=== PATIENT | male | born 1940 | race Caucasian/White ===

== ENCOUNTER 2018-08-29 11:10 | Inpatient (IN) | payer MEDICARE, SELFPAY ==
[2018-08-29] MEDS ORDERED: Norepinephrine 8 MG/0.9% NS 250 ML ONE ×2 (11:19→16:30)
[2018-08-29 11:32] LABS: Actual Bicarbonate (HCO3a) 21.7 mEq/L (22-28); Analyzer IN Cardio ER; Base Excess (BEa) -12.2 mEq/L (-2.0 to +3.0); Carboxyhemoglobin (COHb) 0.3 gm% (0.0-3.0); Hemoglobin (Hb) 13.2 g/dL (14.0-18.0); O2 Tension (PaO2) 79.4 mmHg (> 70.0); Potassium - ABG Lab 5.33 mmol/L (3.70-5.30)
[2018-08-29 11:33] LABS: CO2 Tension 100.3 mmHg (35.0-45.0); pH, Arterial 6.95 (7.35-7.45)
[2018-08-29 11:34] LABS: ALV-art Gradient 151.725 (0-20); Puncture Site LRA
[2018-08-29] MEDS ORDERED: Sodium Bicarb 50 MEQ/50 ML Abboject 8.4% SYRINGE ONE ×3 (11:58→16:00)
[2018-08-29 12:13] LABS: ALT (SGPT) 22 U/L (8-55); AST (SGOT) 59 U/L (5-34); Albumin 2.5 g/dL (3.4-4.8); Alkaline Phosphatase 122 U/L (40-150); Anion Gap 30 mmol/L (10-20); BUN (Urea Nitrogen) 89 mg/dL (8.4-25.7); Bilirubin, Total 0.6 mg/dL (0.2-1.2); Calc. Creatinine Clearance 0 mL/min (70-130); Calcium 11.1 mg/dL (7.8-10.44); Carbon Dioxide 17 mmol/L (23-31); Chloride 103 mmol/L (98-107); Estimated GFR-MDRD 10; Globulin 4.4 g/dL (2.4-3.5); Glucose 169 mg/dL (83-110); Protein, Total 6.9 g/dL (5.8-8.1); Sodium 145 mmol/L (136-145)
[2018-08-29] MEDS ORDERED: Vancomycin HCl 1.5 GM in Sodium Chloride 0.9% 250 ML 300 ML IVPB ONE (12:15)
[2018-08-29] MEDS ORDERED: Piperacillin/Tazobactam 4.5 GM VIAL ONE (12:19)
[2018-08-29] MEDS ORDERED: Water For Inject, Bacteriostat 30 ML ONE (12:19)
[2018-08-29] MEDS ORDERED: methylPREDNISolone Sod Succ/PF 125 MG/2 ML VIAL ONE (12:19)
[2018-08-29 12:24] LABS: Hemoglobin 12.9 g/dL (14.0-18.0); Mean Corpuscular HGB CONC 32.1 g/dL (32.0-36.0); Mean Corpuscular Hemoglobin 36.5 pg (27.0-31.0); Mean Platelet Volume 8.4 fL (7.4-10.4); Platelet Count 349 thou/uL (130-400); RBC Distribution Width 13.4 % (11.5-14.5); Red Blood Cell (RBC) Count 3.54 mill/uL (4.70-6.10); White Blood Cell (WBC) Count 21.6 thou/uL (4.8-10.8)
[2018-08-29 12:25] LABS: Band 39 % (5-11); Lymphocytes 15 % (21-51); MDiff Complete? YES; Macrocytosis SLIGHT = 6-15 cells (100X) (0-5/hpf); Metamyelocyte 2 % (0-0); Monocytes 3 % (0-10); Neutrophil 41 % (42-75); Nucleated RBC 2 % (0); Polychromasia SLIGHT = 2-3 cells (100X) (0-2/hpf)
[2018-08-29] MEDS ORDERED: Naloxone HCl 2 mg/2 ml Syringe ONE (12:33)
[2018-08-29 12:43] LABS: CKMB 5.4 ng/mL (0-6.6)
--- NOTE | 2018-08-29 12:43 | RAD ---
PORTABLE CHEST: DATE: 08/29/2018. PROVIDED CLINICAL HISTORY: Status post cardiac arrest and hypoxia. FINDINGS: Comparison is made with the study dated 07/06/2014. Cardiac and mediastinal silhouette is within nor mal limits. Vascular calcification involves the aortic arch. Median sternotomy changes are seen. E ndotracheal tube is noted, the tip of which projects in the region of the thoracic inlet. Right-side d subclavian central line is noted, the tip of which projects in the expected location of the SVC. T here is airspace disease throughout the right lung and likely also at the left lung base medially. T he supine nature of this study limits sensitivity for detection and pneumothorax. IMPRESSION: 1. Diffuse right hemithoracic and left basilar airspace disease. Findings could reflect pneumonia, aspiration or edema. Followup is recommended. 2. Lines and tubes as above. POS: CR
[2018-08-29 12:44] LABS: Actual Bicarbonate (HCO3a) 20.4 mEq/L (22-28); Analyzer IN Cardio ER; Base Excess (BEa) -12.1 mEq/L (-2.0 to +3.0); Calcium, Ionized 1.24 mmol/L (1.12-1.30); Carboxyhemoglobin (COHb) 0.1 gm% (0.0-3.0); O2 Tension (PaO2) 114.8 mmHg (> 70.0); Potassium - ABG Lab 4.39 mmol/L (3.70-5.30)
[2018-08-29] MEDS ORDERED: Vasopressin 40 UNIT, Admixture Fee 1 EACH in Sodium Chloride 0.9% 100 ML IV SCH (12:45)
[2018-08-29 12:47] LABS: CO2 Tension 84.4 mmHg (35.0-45.0); Puncture Site LBA
[2018-08-29 12:57] LABS: Lactic Acid 13.9 mmol/L (0.5-2.2)
[2018-08-29] MEDS ORDERED: EPINEPHrine 1 MG/10 ML Abboject SYRINGE ONE ×2 (14:01→16:00)
[2018-08-29] MEDS ORDERED: Acetaminophen 650 MG Suppository PR PRN (14:17)
--- NOTE | 2018-08-29 14:18 | CT ---
CT BRAIN: DATE: 08/29/2018. PROVIDED CLINICAL HISTORY: Post cardiac arrest. FINDINGS: Comparison 09/17/2013. The ventricular system appears normal I size and morphology. There is no monika dence for intracranial hemorrhage or mass effect. Chronic microvascular white matter ischemic change s are seen. Fletcher-white differentiation appears preserved. The extracranial soft tissues and osseous structures appear unremarkable. IMPRESSION: No evidence for intracranial hemorrhage or mass effect. POS: [facility]
[2018-08-29 14:33] VITALS: BMI 30.8
[2018-08-29 14:43] LABS: Actual Bicarbonate (HCO3a) 20.1 mEq/L (22-28); Base Excess (BEa) -9.7 mEq/L (-2.0 to +3.0); Calcium, Ionized 1.09 mmol/L (1.12-1.30); Carboxyhemoglobin (COHb) 0.9 gm% (0.0-3.0); Hemoglobin (Hb) 12.6 g/dL (14.0-18.0); Potassium - ABG Lab 4.35 mmol/L (3.70-5.30)
[2018-08-29 14:56] LABS: CO2 Tension 62.6 mmHg (35.0-45.0); pH, Arterial 7.12 (7.35-7.45)
[2018-08-29 14:57] LABS: O2 Tension (PaO2) 55.9 mmHg (> 70.0); Puncture Site LFA
[2018-08-29] MEDS ORDERED: Vancomycin HCl 1.5 GM in Sodium Chloride 0.9% 250 ML 300 ML IVPB SCH (15:00)
[2018-08-29] MEDS ORDERED: Piperacillin/Tazobactam 2.25 GM in Sodium Chloride 0.9% 100 ML IVPB SCH (15:00)
[2018-08-29] MEDS ORDERED: EPINEPHrine 4 MG, Admixture Fee 1 EACH in Dextrose 5% in Water 250 ML IVPB SCH (15:15)
[2018-08-29 15:40] LABS: Troponin I 0.381 ng/mL (< 0.028)
[2018-08-29] MEDS ORDERED: Calcium Chloride 1 GM/10 ML Abboject SYRINGE ONE (16:00)
[2018-08-29 18:23] LABS: CKMB 13.7 ng/mL (0-6.6)
[2018-08-29] MEDS: Albuterol Sulfate 1.25 MG/3 ML NEB NEB SCH ×2 (18:39→22:09)
[2018-08-29 19:03] LABS: Albumin 2.3 g/dL (3.4-4.8); Anion Gap 30 mmol/L (10-20); BUN (Urea Nitrogen) 87 mg/dL (8.4-25.7); BUN/Creatinine Ratio 16.23; Calc. Creatinine Clearance 16 mL/min (70-130); Calcium 8.8 mg/dL (7.8-10.44); Carbon Dioxide 10 mmol/L (23-31); Chloride 109 mmol/L (98-107); Estimated GFR-MDRD 10; Glucose 254 mg/dL (83-110); Potassium 4.9 mmol/L (3.5-5.1); Sodium 144 mmol/L (136-145)
[2018-08-29 19:32] LABS: Actual Bicarbonate (HCO3a) 23.3 mEq/L (22-28); Base Excess (BEa) -7.5 mEq/L (-2.0 to +3.0); Calcium, Ionized 1.09 mmol/L (1.12-1.30); Carboxyhemoglobin (COHb) 0.9 gm% (0.0-3.0); Hemoglobin (Hb) 13.9 g/dL (14.0-18.0); O2 Tension (PaO2) 70.9 mmHg (> 70.0); Potassium - ABG Lab 3.86 mmol/L (3.70-5.30)
[2018-08-29 19:35] LABS: ALV-art Gradient 550.225 (0-20); CO2 Tension 73.5 mmHg (35.0-45.0); Puncture Site RRAD; pH, Arterial 7.12 (7.35-7.45)
[2018-08-29] MEDS ORDERED: Sodium Bicarb 50 MEQ/50 ML Abboject 8.4% SYRINGE IVP SCH (20:00)
[2018-08-29] MEDS: Sodium Bicarbonate 150 MEQ in Dextrose 5% in Water 1,000 ML IV SCH (20:12)
[2018-08-29 21:11] VITALS: TEMP 99
--- NOTE | 2018-08-29 21:29 | HP ---
HISTORY OF PRESENT ILLNESS: The patient is a 77-year-old male, who was found to be with altered mental status when the EMS was called to his place where he was, thus history is very limited. EMS tried to intubate him and he coded, they started resuscitation when he was transported by the helicopter to the emergency room at [facility] and he coded three times total. The last time he coded was in the emergency room at [facility] in [place]. He got intubated, and he is getting admitted for sepsis and respiratory failure to critical care unit. As I stated above, the history is very limited on this case. We know that he has some history of leukemia. PAST MEDICAL HISTORY: Also positive for COPD, chronic low back pain, coronary artery disease, status post bypass. PAST SURGICAL HISTORY: 1. Coronary artery bypass grafting x4 vessels. 2. Appendectomy. 3. Left arm surgery. ALLERGIES: NONE. SOCIAL HISTORY: Unobtainable secondary to the patient's mental status at this point. FAMILY HISTORY: Unobtainable. MEDICATIONS: We know that he is taking; 1. Hydrocodone. 2. Atorvastatin. 3. Lisinopril. 4. Hydroxyurea. REVIEW OF SYSTEMS: Unobtainable. PHYSICAL EXAMINATION: GENERAL: He is intubated. HEENT: His pupils are quite small, approximately 2 mm and they are not very responsive to light. Sclerae are nonicteric. He is orally intubated. LUNGS: Bilateral rales at both bases, mild. No wheezing. HEART: S1 and S2. Tachycardic. No S3. No S4. ABDOMEN: Soft, nondistended. Bowel sounds are present. EXTREMITIES: No clubbing, cyanosis, or edema. Peripheral pulses significantly diminished on both dorsalis pedis and tibialis posterior arteries similar bilaterally. NEUROLOGICAL: He is unresponsive. Full neuro examination postponed. SKIN: No rash. LABORATORY DATA: White count of 21.6, hemoglobin 12.9, hematocrit 40.2, platelet count is 349,000, 41 neutrophils, 39 bands. ABGs showed pH of 6.95, pCO2 of 100.3, pO2 of 79.4, bicarb 21.7, base excess -12.2. A-a gradient 151, calcium . Sodium of 145, potassium 5, chloride 103, CO2 of 17, anion gap 30, BUN 89, creatinine 5.72, glucose 169, calcium 11.1, and AST 59. Troponin 0.341. CK-MB pending. Albumin 2.5, globulin 4.4. EKG showed sinus tachycardia at 135 beats per minute, right bundle-branch block, nonspecific T-wave changes. Chest x-ray personally reviewed by me showed increased opacification of the right lung suggestive of some inflammatory process most likely pneumonia. IMPRESSION: 1. Severe sepsis with hypotension. The patient is on Levophed and epi drips. He is getting IV fluids. He is started on Zosyn and vancomycin. 2. Respiratory failure, hypercapnic and hypoxic. I presume that this is acute on chronic with his chronic obstructive pulmonary disease and hydrocodone use, most likely pCO2. 3. Metabolic acidosis, again probably acute on chronic secondary to renal failure. 4. Acute renal failure. 5. Severe chronic obstructive pulmonary disease. 6. Right lung infiltrate suggestive of pneumonia. 7. Coronary artery disease and elevated first troponin at 0.3. PLAN: Admission to critical care unit. Status, critical. IV fluids; he had 1 L of fluids plus what he got prior to the hospital emergency room evaluation during transport. We will give him additional 2 L to get his blood pressure up. So far, he is not responding well to our treatment. We will keep him on vancomycin and Zosyn IV piggyback. He had 2 antibiotics, each of them started in the emergency room. We will have peoplesoft hrms developer, Dr. Louis and Critical Care/Pulmonary, Dr. Russ involved. Dr. Russ is informed about the patient's status and condition. We will use steroids since he has severe COPD and albuterol every 4 hours. We will do SCDs for DVT prophylaxis so far. We will have echocardiogram and Cardiology consultation with Dr. Helton, who is console attendant today. We will have him on IV Protonix for PUD prophylaxis. Blood and urine cultures were done. Job ID: [id number]
[2018-08-29] MEDS: Norepinephrine 8 MG/250 ML BAG IVPB PRN (21:31)
[2018-08-29] MEDS: Piperacillin/Tazobactam 2.25 GM in Sodium Chloride 0.9% 100 ML IVPB SCH (21:32)
--- NOTE | 2018-08-29 23:58 | CON ---
DATE OF CONSULTATION: 08/29/2018 CARDIOLOGY CONSULT NOTE INDICATION FOR CONSULTATION: A 77-year-old patient who was found down and also had [id number] cardiac arrest appears to be septic. He required two or three times resuscitation prior to being admitted to the Intensive Care Unit. At this time, he is on the ventilator. He has some significant cyanosis of the left upper extremity involving the hand and wrist area. Otherwise, he remains relatively stable from a cardiac standpoint at this time. He is on Levophed. Blood pressure is 120/62. He is on the ventilator. Heart rate 116, and O2 saturation 91%. PAST MEDICAL HISTORY: Significant for coronary artery disease also due to hypertension as well as chronic back pain. He has had a history of COPD. He has had a history of leukemia and bone cancer, uncertain exactly when the last time this was evaluated. He has had an appendectomy. He has had bypass surgery x4 back in 2000, I believe. He has also had orthopedic surgery in the left arm. SOCIAL HISTORY: According to the records, he has no previous history of smoking or alcohol use. He is , but lives with his ex-. Otherwise, we do not know any other past social history. ALLERGIES: NONE. MEDICATIONS: His medications prior to admission include; 1. Lisinopril. 2. Pantoprazole. 3. Atorvastatin. 4. Baby aspirin. 5. Hydroxyurea. 6. Hydrocodone. 7. Also p.r.n. Valium. REVIEW OF SYSTEMS: Not obtainable. The patient is on the ventilator and sedated. PHYSICAL EXAMINATION: GENERAL: Reveals an ill-appearing gentleman on the ventilator. HEENT: Unremarkable. He has an ET tube in place. CHEST: Has diffuse rales throughout. CARDIOVASCULAR: Heart sounds are distant, but appears to be tachycardic and I did not hear any murmurs, bruits, or rubs. ABDOMINAL: Shows morbid obesity. I cannot evaluate any further. EXTREMITIES: Showed minimal lower extremity edema. Pedal pulses were not palpable. The radial pulses also were not palpable, but were present by Doppler, but the left hand is extremely cyanotic as well as the fingers. No lower extremity edema. NEUROLOGIC: Obviously, the patient is sedated. LABORATORY DATA: Shows a WBC of 21.6 with 39% bands, hemoglobin 12.9. His chemistry shows sodium of 145, BUN of 89, creatinine of 5.72. Lactic acid 13.9. Troponin was 0.34, then 0.38 and then 0.40. His previous creatinine back in June 2014 was normal. We do not have any laboratory data between 2013 and 2018. IMPRESSION: 1. Sepsis of uncertain etiology due to elevated white blood cell count as well as significant increase in the percentage of bands. The patient is septic and most likely has metabolic acidosis associated with this. 2. History of coronary artery disease, appears to be relatively stable despite his sepsis at this time. 3. Poor perfusion involving the left upper extremity. 4. History of chronic obstructive pulmonary disease. It will be dealt with by the primary care service. 5. History of hypertension, this is obviously he is on pressors at this time to maintain the blood pressure due to the sepsis. 6. History of leukemia as well as bone cancer, this will be dealt with perhaps if necessary by the Oncology Service. From a cardiac standpoint, there is very little I have to offer at this time except for control of the blood pressure and heart rate. His heart rate shows a sinus tachycardia at 118 beats per minute with occasional PVCs. His overall prognosis is poor due to severe sepsis in this gentleman with multiple other medical problems. We will obtain an echocardiogram for evaluation of the left ventricular systolic function and further recommendations will depend on the ejection fraction. Job ID: [id number]
--- NOTE | 2018-08-30 01:34 | CON ---
DATE OF CONSULTATION: 08/29/2018 SERVICE: Pulmonary Medicine. REASON FOR CONSULT: Septic shock. HISTORY OF PRESENT ILLNESS: The patient is a 77-year-old white male with past medical history significant for COPD and coronary artery disease. Apparently, he was in his usual state of health last night when he went to sleep. This morning, his found him. He had one leg pant on his jeans. He was slumped over sideways in bed with a mouthful of frothy sputum. He was subsequently brought to the emergency department. He was intubated. He lost pulses. Ultimately, he required chest compressions. He had return of circulation, but then required chest compressions a second time. Overall, he had over 10 minutes of chest compressions. When he arrived in the ICU, his pupils were very poorly reactive. He was completely unresponsive. He is on mechanical ventilation. He is on 3 separate pressors in order to maintain blood pressures. He cannot provide any additional elements of the history. PAST MEDICAL HISTORY: 1. COPD. 2. Coronary artery disease. 3. Chronic low back pain. 4. Gastroesophageal reflux disease. 5. Leukemia (family says that he has a blood cancer). PAST SURGICAL HISTORY: 1. Coronary artery bypass graft. 2. Left arm surgery. 3. Appendectomy. SOCIAL HISTORY: Unknown. FAMILY HISTORY: Likely noncontributory. ALLERGIES: NO KNOWN DRUG ALLERGIES. MEDICATIONS: List of his inpatient medications was reviewed. Multiple updates were made at this time. REVIEW OF SYSTEMS: Cannot be obtained as the patient is currently encephalopathic. PHYSICAL EXAMINATION: VITAL SIGNS: Afebrile, pulse 118, blood pressure 135/61, respirations 24, and saturation 92% on 2 L on 90% FiO2 and a PEEP of 7. HEENT: Normocephalic and atraumatic. Sclerae white. Conjunctivae pink. Oral mucosa is dry. He has dried vomitus in his mustache. NECK: Supple. Trachea is midline. LUNGS: Very reduced air entry. There is rhonchi and crackles present. There is a prolonged expiratory phase with wheezing. HEART: Tachycardic. Regular. ABDOMEN: Soft, nontender, and nondistended. Bowel sounds are positive. MUSCULOSKELETAL: No cyanosis or clubbing. There is no pitting edema. He has skin tenting. GENITOURINARY: Rose catheter in place. NEUROLOGIC: He has very sluggish pupils. He is overbreathing the ventilator, but demonstrates profound weakness. Reflexes seem to be symmetric bilaterally. Cranial nerves and sensation cannot be tested in his current state. LABORATORY DATA: WBC 21.6, hemoglobin 12.9, platelets 349,000. Neutrophils are 41 on top of 15% bands. PH of 7.12, pCO2 of 73, pO2 of 71, corresponding to an oxygen saturation of 90%. Potassium 5.36 and gently downtrending, BUN 87, anion gap 30 and stable, bicarb 10, chloride 109. Basic metabolic profile is otherwise unremarkable. Potassium is downtrending. Phosphorus is 7.0, CK-MB 13.7 and uptrending. Albumin is low at 2.3. Troponin is 0.406 and uptrending. IMAGING: Echocardiogram today demonstrates a 30% to 35% ejection fraction. He has diastolic dysfunction with E to A reversal. The RV is dilated. The left atrium is normal in size and the right atrium is also normal in size. Mild to moderate tricuspid regurgitation is noted. CT of the brain demonstrates no acute intracranial abnormality. His chest x-ray demonstrates fluffy bilateral infiltrates. They seem to be much worse on the right. Endotracheal tube is in good position. Sternotomy wires are noted. There is a right subclavian central venous catheter, which terminates in a good position. ASSESSMENT: 1. Acute hypoxic and hypercapnic respiratory failure. 2. Septic shock. 3. Community-acquired pneumonia. 4. Chronic obstructive pulmonary disease with acute exacerbation. 5. Acute kidney injury, suspected. 6. Pbn-PR-teciqubbc myocardial infarction. 7. Acute on chronic systolic and diastolic heart failure, suspected. 8. Pulseless electrical activity arrest. 9. Multisystem organ dysfunction. DISCUSSION AND PLAN: The patient is doing very poorly at this point. He has a horrendous metabolic or combined metabolic and respiratory acidosis. He is demonstrating breath stacking and so I am having a hard time hyperventilating for him. We are initiating a bicarb drip. He is on 3 separate pressors in order to maintain blood pressure. We are going to continue our empiric antibiotics. There is a very good possibility this patient will be passing away during this hospital stay. We will maximize supportive therapy moving forward. Pulmonary Critical Care will continue to follow on a daily basis. We will trend the lactates through time and hopefully, be able to prove that they are trending downward. He is making very small amounts of urine output, so I am hopeful that he will be able to correct his metabolic derangement. If he does not, we may need to initiate dialysis in 24 to 48 hours or if not sooner. Job ID: [id number]
[2018-08-30] MEDS: Albuterol Sulfate 1.25 MG/3 ML NEB NEB SCH (02:07)
[2018-08-30] MEDS: Norepinephrine 8 MG/250 ML BAG IVPB PRN ×3 (03:17→14:57)
[2018-08-30 03:50] LABS: ALT (SGPT) 24 U/L (8-55); AST (SGOT) 66 U/L (5-34); Alkaline Phosphatase 56 U/L (40-150); Anion Gap 17 mmol/L (10-20); BUN (Urea Nitrogen) 90 mg/dL (8.4-25.7); Calc. Creatinine Clearance 14 mL/min (70-130); Calcium 8.1 mg/dL (7.8-10.44); Carbon Dioxide 30 mmol/L (23-31); Chloride 103 mmol/L (98-107); Estimated GFR-MDRD 9; Globulin 3.8 g/dL (2.4-3.5); Glucose 152 mg/dL (83-110); Potassium 4.3 mmol/L (3.5-5.1); Protein, Total 5.8 g/dL (5.8-8.1); Sodium 146 mmol/L (136-145)
[2018-08-30 04:05] LABS: Lactic Acid 4.9 mmol/L (0.5-2.2)
[2018-08-30 04:06] LABS: Band 45 % (5-11); Dohle Bodies SLIGHT; Hemoglobin 13.8 g/dL (14.0-18.0); Lymphocytes 19 % (21-51); MDiff Complete? YES; Mean Corpuscular Hemoglobin 36.3 pg (27.0-31.0); Mean Platelet Volume 8.9 fL (7.4-10.4); Metamyelocyte 18 % (0-0); Monocytes 8 % (0-10); Myelocyte 3 % (0-0); Neutrophil 7 % (42-75); Nucleated RBC 3 % (0); Platelet Count 189 thou/uL (130-400); RBC Distribution Width 13.6 % (11.5-14.5); Toxic Granulation SLIGHT; White Blood Cell (WBC) Count 9.3 thou/uL (4.8-10.8)
[2018-08-30 05:06] LABS: Actual Bicarbonate (HCO3a) 32.1 mEq/L (22-28); Base Excess (BEa) 2.9 mEq/L (-2.0 to +3.0); Calcium, Ionized 1.03 mmol/L (1.12-1.30); Carboxyhemoglobin (COHb) 0.9 gm% (0.0-3.0); Hemoglobin (Hb) 14.2 g/dL (14.0-18.0); O2 Tension (PaO2) 62.3 mmHg (> 70.0); Potassium - ABG Lab 4.37 mmol/L (3.70-5.30); pH, Arterial 7.27 (7.35-7.45)
[2018-08-30 05:08] LABS: CO2 Tension 72.2 mmHg (35.0-45.0); Puncture Site LBRACH
[2018-08-30] MEDS: Sodium Bicarbonate 150 MEQ in Dextrose 5% in Water 1,000 ML IV SCH (05:26)
[2018-08-30] MEDS: Piperacillin/Tazobactam 2.25 GM in Sodium Chloride 0.9% 100 ML IVPB SCH ×2 (05:27→14:51)
--- NOTE | 2018-08-30 08:20 | PDOC.CTH ---
<Zoya French - Last Filed: 08/30/18 08:15> Cardiology Progress Note - Subjective The pt seen and examined. No overnight events. On mechanical vent support without any vent sedation. No response to pain stimulation. - Objective Vital Signs Pulse Resp BP Pulse Ox 08/30/18 06:56 124 H 101/62 08/30/18 06:53 124 H 29 H 08/30/18 06:00 35 H 08/30/18 04:00 36 H 08/30/18 02:07 130 H 38 H 93 L 08/30/18 02:00 39 H 08/30/18 00:42 124 H 38 H 08/30/18 00:00 39 H 08/29/18 22:10 128 H 08/29/18 22:09 127 H 38 H 92 L 08/29/18 22:00 37 H Weight 208 lb 12.444 oz 08/29/18 08/30/18 08/31/18 06:59 06:59 06:59 Intake Total 3831.6 Output Total 320 Balance 3511.6 - Physical Examination Lungs: other: (coarses and diminished) Heart: RRR Abdomen: soft Extremities: other: (generalized edema; cyanosis) - Telemetry Telemetry Rhythm: ST - Labs Result Diagrams: 08/30/18 03:15 08/30/18 03:15 Troponin/CKMB CK-MB (CK-2) 16.0 ng/mL (0-6.6) H* 08/29/18 20:44 Troponin I 0.589 ng/mL (< 0.028) H* 08/29/18 20:44 - Assessment/Plan 1. s/p Cardiac arrest x 2 - on Mechanical vent support with no vent sedation; no response to pain stimulation; 2. Septic shock with unknown etiology - BP is stable with NS, Epi, Levophed and vasopressin; on ABX IV. 3. Acute on Chronic Combined HF - Echo on 08/29/18 showed EF 30-35% with diastolic dysfunction 4. CAD wtih hx of CABG x4 in 2000 - 5. ARIELLE - worsen today 6. COPD - on Mechanical vent support 7. Cyanosis to Lt hand - 8. hx of eukemia MAR reviewed Review of Systems - Review of Systems Constitutional: reports: see HPI EENTM: reports: see HPI Respiratory: reports: see HPI <Helton,G Nino - Last Filed: 08/30/18 10:30> Cardiology Progress Note - Objective Vital Signs Pulse Resp BP Pulse Ox 08/30/18 10:20 123 H 90/64 08/30/18 06:56 124 H 101/62 08/30/18 06:53 124 H 29 H 08/30/18 06:00 35 H 08/30/18 04:00 36 H 08/30/18 02:07 130 H 38 H 93 L 08/30/18 02:00 39 H 08/30/18 00:42 124 H 38 H 08/30/18 00:00 39 H Weight 208 lb 12.444 oz 08/29/18 08/30/18 08/31/18 06:59 06:59 06:59 Intake Total 3831.6 Output Total 320 Balance 3511.6 - Labs Result Diagrams: 08/30/18 03:15 08/30/18 03:15 Troponin/CKMB CK-MB (CK-2) 16.0 ng/mL (0-6.6) H* 08/29/18 20:44 Troponin I 0.589 ng/mL (< 0.028) H* 08/29/18 20:44 - Assessment/Plan Pt. seen and eval. by me. I agree with the A/P by the PADDER. Blood cultures are positive for staph. EF as above. Unresponsive pt. Extremely poor prognosis. RRR. Chest clear anteriorly.Pt. on ventilator.
[2018-08-30] MEDS ORDERED: Dextrose 5 % And 0.9 % NaCl 1,000 ML IV SCH (09:00)
--- NOTE | 2018-08-30 09:26 | RAD ---
CHEST 1 VIEW: Date: 08/30/18 HISTORY: Ventilated patient. COMPARISON: Radiograph prior day. FINDINGS: Patient intubated with endotracheal tube tip at the level of the clavicles, in good position. Subclav santiago central venous catheter tip is similar. There are bibasilar air space opacities. Small left effus ion. Right upper lobe air space opacity is also present. There is a nodule in the right upper lobe. IMPRESSION: 1. Findings concerning for multifocal pneumonia. 2. Small right and moderate left effusion. 3. Concerning for a nodule in the right upper lobe. Nonemergent follow-up CT of the chest is highly recommended. POS: [facility]
--- NOTE | 2018-08-30 09:41 | PRG ---
DATE OF SERVICE: 08/30/2018 SUBJECTIVE: He is a 77-year-old gentleman, intubated on the vent, on epinephrine, Levophed, and vasopressin drips. He remains hypotensive, on no sedation. OBJECTIVE: VITAL SIGNS: His blood pressure is 103/64, respirations 29, pulse 124, saturating 90%, barely on 100% FiO2 and 7 of PEEP. HEENT: Pupils are 3 mm dilated. He is jaundiced. CHEST: Decreased breath sounds. No wheezing. CARDIAC: Normal S1 and S2. No gallops. ABDOMEN: No masses. LABORATORY DATA: His PO2 is 72, pCO2 is 72, pH is 7.27. BUN and creatinine are 90 and 5.83. His chest x-ray shows bilateral pulmonary infiltrates. His troponin is 0.589. Lactic acid is 4.9. IMPRESSION: 1. Multiorgan failure. 2. Severe respiratory acidosis. 3. Renal failure. 4. Bilateral bronchopneumonia. 5. Congestive heart failure. PLAN: We tried to contact the family to ge additional information and a code status. Presently, he is full code. Cardiology is on board. His echocardiogram shows EF of about 30%, suggesting a cardiac component to his abnormal chest x-ray. Probably, anoxic injury, status post PEA. Antibiotics adjusted for his renal failure, steroids, neb treatment, and supportive care. I am not so sure he is scheduled for dialysis at this stage. This is one half hour critical care time. Job ID: [id number]
--- NOTE | 2018-08-30 09:51 | PDOC.PN ---
- Subjective Encounter Start Date: 08/30/18 Encounter Start Time: 09:50 Subjective: intubated, sedated, cooling blanket - Objective Resuscitation Status - Order Detail: 08/29/18 12:30 Resuscitation Status Routine Resuscitation Status: FULL: Full Resuscitation MAR Reviewed: Yes Vital Signs & Weight: Vital Signs (12 hours) Pulse Resp BP Pulse Ox 08/30/18 06:56 124 H 101/62 08/30/18 06:53 124 H 29 H 08/30/18 06:00 35 H 08/30/18 04:00 36 H 08/30/18 02:07 130 H 38 H 93 L 08/30/18 02:00 39 H 08/30/18 00:42 124 H 38 H 08/30/18 00:00 39 H 08/29/18 22:10 128 H 08/29/18 22:09 127 H 38 H 92 L 08/29/18 22:00 37 H Weight Weight 208 lb 12.444 oz Most Recent Monitor Data Heart Rate from ECG 124 NIBP 103/64 NIBP BP-Mean 77 Respiration from ECG 42 SpO2 90 I&O: 08/29/18 08/30/18 08/31/18 06:59 06:59 06:59 Intake Total 3831.6 Output Total 320 Balance 3511.6 Result Diagrams: 08/30/18 03:15 08/30/18 03:15 Phys Exam - Physical Examination pupils non-rreactive, eyes deviated to right Neck: no JVD rales/rhonchi, bilat R>L Cardiovascular: RRR, no significant murmur tachy Gastrointestinal: soft, non-tender scant bowel sounds Musculoskeletal: no edema Dx/Plan (1) Acute respiratory failure with hypoxia and hypercapnia Code(s): J96.01 - ACUTE RESPIRATORY FAILURE WITH HYPOXIA; J96.02 - ACUTE RESPIRATORY FAILURE WITH HYPERCAPNIA Status: Acute (2) Cardiac arrest Code(s): I46.9 - CARDIAC ARREST, CAUSE UNSPECIFIED Status: Acute Comment: times three (3) PNA (pneumonia) Code(s): J18.9 - PNEUMONIA, UNSPECIFIED ORGANISM Status: Acute Qualifiers: Pneumonia type: due to unspecified organism Laterality: right Lung location: lower lobe of lung Qualified Code(s): J18.1 - Lobar pneumonia, unspecified organism (4) Acute renal failure Status: Acute Qualifiers: Acute renal failure type: with acute tubular necrosis Qualified Code(s): N17.0 - Acute kidney failure with tubular necrosis (5) Cardiomyopathy Code(s): I42.9 - CARDIOMYOPATHY, UNSPECIFIED Status: Acute Qualifiers: Cardiomyopathy type: ischemic Qualified Code(s): I25.5 - Ischemic cardiomyopathy (6) COPD (chronic obstructive pulmonary disease) Status: Acute Qualifiers: COPD type: emphysema Emphysema type: unspecified Qualified Code(s): J43.9 - Emphysema, unspecified (7) CAD (coronary artery disease) Code(s): I25.10 - ATHSCL HEART DISEASE OF [place] CORONARY ARTERY W/O ANG PCTRS Status: Acute Qualifiers: Coronary Disease-Associated Artery/Lesion type: [place] artery [place] vs. transplanted heart: [place] heart Associated angina: angina presence unspecified Qualified Code(s): I25.10 - Atherosclerotic heart disease of [place] coronary artery without angina pectoris - Plan on pressors x 3 -: vent dependent- discuss with intesivit -: oliguric will call renal -: cont iv antibx -: probable anoxic brain injury * .
[2018-08-30] MEDS ORDERED: Heparin 5,000 UNITS/ML VIAL SC SCH ×2 (10:00→21:00)
--- NOTE | 2018-08-30 12:38 | CON ---
DATE OF CONSULTATION: CONSULTING PHYSICIAN: Heriberto Wood MD. REQUESTING PHYSICIAN: Elliot Guerrero MD. REASON FOR CONSULTATION: Acute kidney injury. IMPRESSION: 1. Severe acute tubular necrosis in the context of sepsis. 2. Severe metabolic acidosis related to problem #1 above and sepsis. 3. Cardiopulmonary failure on life support. PLAN: 1. Renal supportive measures. 2. BiPAP infusion to see if the patient can respond to medical management of metabolic acidosis in conjunction with vent adjustments. 3. Renally dose all medications for extremely low GFR and avoid potential nephrotoxic agents. 4. If the patient does not respond to medical management of metabolic acidosis, this might be an indication to initiate renal replacement therapy (hemodialysis). HISTORY: A 77-year-old gentlemen, who was found down with altered mental status, tried to be intubated out in the field and coded. The patient was brought into the hospital, where the patient has been coded several times. Currently, the patient is on life support and noted with elevated creatinine and not making much of any urine, and the patient also noted to be severely metabolically acidotic. PAST MEDICAL HISTORY: Significant for COPD; coronary artery disease, status post bypass; status post appendectomy; left arm surgery. ALLERGIES: NO KNOWN DRUG ALLERGIES. SOCIAL HISTORY: Could not be obtained given the fact that this patient is intubated. FAMILY HISTORY: Could not be obtained given the fact that this patient is intubated. MEDICATIONS: Reviewed and as documented on [email or web address]. PHYSICAL EXAMINATION: GENERAL: On examination, the patient was found to be on life support and on multiple pressors. VITAL SIGNS: Noted with the following vital signs; pulse of 128, blood pressure 109/71. HEENT: Remarkable for endotracheal tube in place. CARDIOVASCULAR SYSTEM: First and second heart sounds were heard. RESPIRATORY SYSTEM: Revealed ventilator sounds. DIGESTIVE SYSTEM: Revealed an obese abdomen. EXTREMITIES: No significant peripheral edema. NEURO: The patient is sedated and intubated. LABORATORY INVESTIGATIONS: Showed a creatinine of 5.36 with a BUN of 87 and bicarb of 10, phosphorus 7.0, lactic acid of 6. Blood gas showed a pH of 7.12, pCO2 of 73, and a pO2 of 70. SUMMARY: A 77-year-old gentleman, who was brought in with altered mental status, having coded several times and now severely metabolic acidotic in the context of this acute tubular necrosis. Thank you for this consultation. We will follow with you. The condition of this patient is very critical. Job ID: [id number]
[2018-08-30] MEDS ORDERED: Bisacodyl 5 MG TAB PO PRN (12:57)
[2018-08-30 13:10] LABS: Actual Bicarbonate (HCO3a) 27.3 mEq/L (22-28); Base Excess (BEa) -1.5 mEq/L (-2.0 to +3.0); Calcium, Ionized 0.93 mmol/L (1.12-1.30); Carboxyhemoglobin (COHb) 0.7 gm% (0.0-3.0); Hemoglobin (Hb) 13.7 g/dL (14.0-18.0); Potassium - ABG Lab 4.91 mmol/L (3.70-5.30)
[2018-08-30 13:12] LABS: O2 Tension (PaO2) 47.4 mmHg (> 70.0); pH, Arterial 7.24 (7.35-7.45)
[2018-08-30 13:13] LABS: Puncture Site LFA
[2018-08-30 13:42] VITALS: BP 84/53
[2018-08-30 14:37] LABS: Vancomycin, Random 17.7 ug/mL (See Comment)
[2018-08-30] MEDS ORDERED: Vancomycin HCl 1 GM in Premix Bag 1 BAG IVPB SCH (15:00)
[2018-08-30] MEDS ORDERED: Vancomycin HCl 500 MG in Sodium Chloride 0.9% 100 ML IVPB SCH (15:00)
--- NOTE | 2018-08-30 15:02 | PRG ---
DATE OF SERVICE: 08/30/2018 SUBJECTIVE: He is on epinephrine drip and Levophed drip, intubated on the vent. We did an emergency blood gases was low. His PO2 was 47, pCO2 was 65 , pH was 7.24 on 100% FiO2 and a PEEP of 10. His vent is being adjusted. He is placed on a bilevel at this time with a low PEEP of 15. His common-law is over here. His stepson was here in the room. There are no other family members according to his . He has children that he has not seen for 40 years. She is the one who is legally responsible for his care. OBJECTIVE: VITAL SIGNS: At this stage, his blood pressure is extremely low 80/ 50, pulse 113, sats are in the 80s, and respiratory rate is set at 30. GENERAL: He has a right hand that appears to be gangrenous at the wrist, unresponsive. EXTREMITIES: 2+ edema. CHEST: Extensive rhonchi. CARDIAC: Sinus tach. ABDOMEN: Distended. IMPRESSION: 1. Multiorgan failure. 2. Sepsis syndrome. 3.SHOCK ,GRANGERENE R,WRIST_. He has staph in his blood culture, probably Staph sepsis. Unfortunately, at this stage, he has multiorgan failure, very unlikely the patient would survive a prolonged CPR. He has probably had anoxic injury. The has agreed that in the past the patient has been wanted to be a DNR. I agreed to make him a DNR. Terminal multiorgan failure. Job ID: [id number] MTDD
--- NOTE | 2018-08-30 22:51 | PRG ---
DATE OF SERVICE: 08/30/2018 SUBJECTIVE: The patient is seen and examined, still on life support, in very critical condition. OBJECTIVE: VITAL SIGNS: Blood pressure pulse 115. HEENT: Unremarkable. Endotracheal tube in place. CARDIOVASCULAR SYSTEM: First and second heart sounds, tachycardic. RESPIRATORY SYSTEM: Revealed ventilator sounds. EXTREMITIES: Showed some mottled extremities. IMPRESSION: 1. Dense acute tubular necrosis in the context of sepsis. 2. Sepsis. 3. Metabolic acidosis and severe respiratory acidosis. The metabolic acidosis seems to have pretty much improved, but the respiratory acidosis still remains. PLAN: 1. The patient's hemodynamics are still unstable on multiple pressors. Will not be able to withstand any form of renal replacement therapy (hemodialysis). 2. Discontinue bicarbonate drip. The patient's bicarbonate level has gone up to 30, and in place of this, start the patient on normal saline. 3. Further management to be dependent on the clinical course. The condition of the patient is very critical, and the prognosis is extremely poor. Job ID: [id number]
--- NOTE | 2018-08-31 07:11 | DIS ---
DATE OF ADMISSION: 08/29/2018 DATE OF DISCHARGE: 08/30/2018 NOTE. [facility] call admission for Scott. DATE OF : 08/30/2018. FINAL DIAGNOSES: 1. Cardiac arrest x3. 2. Acute combined respiratory failure with hypoxia and hypercapnia. 3. Acute renal failure. 4. Pneumonia. 5. Chronic obstructive pulmonary disease. 6. Coronary artery disease. 7. Cardiomyopathy. HOSPITAL COURSE: The patient was admitted to the [facility] Unit through [facility]. EMS was called to the patient's house. Limited history. EMS attempted to intubate him. He suffered cardiopulmonary arrest three times, the last time was in the emergency room at [facility]. There, he was admitted after being intubated and moved to the Intensive Care Service with a diagnosis of sepsis. He has a history of coronary artery disease and chronic obstructive pulmonary disease. Upon admission, his pupils were small, unresponsive. He had bilateral rales in both bases. Laboratory revealed elevated white count of 21.6, with a left shift, 39 bands. He had an initial arterial blood gas of 6.95, with a CO2 of 100, PO2 of 79. Sodium 145, potassium 5, CO2 of 17, creatinine 5.72. He was started on Levophed, required three pressors to maintain his pressure. He was ventilated. He was started on IV antibiotics, given IV fluids. Dr. Russ, Critical Care was consulted. Dr. Louis, Nephrology was consulted. Initial echocardiogram revealed 30% to 35% LVEF with septal dyskinesis. He had consultation with Dr. Russ. He was also started on a bicarbonate drip. He was listed as a very guarded prognosis. Today, he was requiring Levophed and vasopressin for blood pressure support. He was on nebulizers, Zosyn, and vancomycin. Blood pressure was in the 103/59 to 109/84 range. Pulse was 120 to 125. He was on the ventilator. He had a cold purple left hand. His feet were cold without pulses. Dr. Cook spoke with the . She agreed that he would prefer to be DNR per his past conversations. He was made DNR by Dr. Cook and the ventilator was removed. He succumbed somewhere around 3:30 in the afternoon on 08/30/2018. Job ID: [id number]
[2018-08-31] MEDS ORDERED: Pantoprazole 40 MG VIAL IVP SCH (09:00)
--- NOTE | 2018-09-04 13:26 | EKG ---
Test Reason : Blood Pressure : / mmHG Vent. Rate : 135 BPM Atrial Rate : 135 BPM P-R Int : 148 ms QRS Dur : 138 ms QT Int : 336 ms P-R-T Axes : 071 012 060 degrees QTc Int : 504 ms Sinus tachycardia with Fusion complexes Right bundle branch block Abnormal ECG Confirmed by NUNO CASPER DO ([id number]), editor trade journal FLOYD MAHARAJ ([id number]) on 09/04/2018 1:26:03 PM Referred By: Confirmed By:NUNO CASPER DO
== END 2018-08-30 15:28 | disposition expired | DRG 871 ==
LOC: ERS 11:10 → CCU 12:59
PROVIDERS: ADMIT Internal Medicine; ATTEND Internal Medicine
PROC: 0BH17EZ Insertion of Endotracheal Airway into Trachea, Via Natural or Artificial Opening (ICD-10-PCS; principal; 2018-08-29)
PROC: 3E033XZ Introduction of Vasopressor into Peripheral Vein, Percutaneous Approach (ICD-10-PCS; 2018-08-29)
PROC: 5A1935Z Respiratory Ventilation, Less than 24 Consecutive Hours (ICD-10-PCS; 2018-08-29)
DX: A41.01 Sepsis due to Methicillin susceptible Staphylococcus aureus (principal); J96.22 Acute and chronic respiratory failure with hypercapnia; J18.1 Lobar pneumonia, unspecified organism; N17.0 Acute kidney failure with tubular necrosis; I50.43 Acute on chronic combined systolic (congestive) and diastolic (congestive) heart failure; R65.21 Severe sepsis with septic shock; I21.4 Non-ST elevation (NSTEMI) myocardial infarction; J96.21 Acute and chronic respiratory failure with hypoxia; E87.2 Acidosis; J44.1 Chronic obstructive pulmonary disease with (acute) exacerbation; E87.4 Mixed disorder of acid-base balance; I96 Gangrene, not elsewhere classified; M54.5 Low back pain; G89.29 Other chronic pain; I25.10 Atherosclerotic heart disease of native coronary artery without angina pectoris; I46.9 Cardiac arrest, cause unspecified; I25.5 Ischemic cardiomyopathy; R23.0 Cyanosis; K21.9 Gastro-esophageal reflux disease without esophagitis; Z66 Do not resuscitate; Z79.82 Long term (current) use of aspirin; Z85.6 Personal history of leukemia; Z85.830 Personal history of malignant neoplasm of bone; Z95.1 Presence of aortocoronary bypass graft
CPT/HCPCS: 36415; 36556; 51702; 70450; 71045; 80053; 80202; 82553; 82805; 83605; 84484; 85025; 87040; 87077; 87149; 87186; 93005; 93306; 94002; 94003; 94640; 96365; 96366; 96368; 96375; 96376; J0171; J2310; J2543; J2920; J2930; J3370; J7050; J7070; J7620